=== PATIENT | female | born 1955 | race Caucasian/White ===

== ENCOUNTER 2024-11-04 14:09 | Emergency (ER) | payer MEDICARE, BC ==
[2024-11-04] MEDS: Ondansetron 4 MG/2 ML SDV IVPUSH ONE (14:12)
[2024-11-04] MEDS: fentaNYL 100 MCG/2 ML SDV IVPUSH ONE ×3 (14:30→15:37)
[2024-11-04] MEDS: Lidocaine 1% with EPINEPHrine 1:100,000 50 ML MDV INFILT ONE (15:15)
[2024-11-04] MEDS: Ketorolac 15 MG/ML SDV IVPUSH ONE (16:45)
[2024-11-04] MEDS: Morphine 10 MG/ML SDV IVPUSH ONE (17:03)
[2024-11-04] MEDS: Ketorolac 15 MG/ML SDV ONE (17:09)
[2024-11-04] MEDS: diazePAM 5 MG/ML MDV IVPUSH ONE (17:10)
[2024-11-04] MEDS ORDERED: Ondansetron 4 MG Tab.DIS ONE (20:00)
[2024-11-04] MEDS ORDERED: Acetaminophen/HYDROcodone 325-5 MG Tab ONE (20:00)
== END 2024-11-04 20:40 | disposition home or self-care (01) ==
LOC: LB.ED 14:09
DX: S53.125A Posterior dislocation of left ulnohumeral joint, initial encounter (principal); S52.022A Displaced fracture of olecranon process without intraarticular extension of left ulna, initial encounter for closed fracture; S52.122A Displaced fracture of head of left radius, initial encounter for closed fracture; S01.112A Laceration without foreign body of left eyelid and periocular area, initial encounter; Z79.890 Hormone replacement therapy; Z79.899 Other long term (current) drug therapy; W01.0XXA Fall on same level from slipping, tripping and stumbling without subsequent striking against object, initial encounter
CPT/HCPCS: 12006; 12013; 24600; 29105; 70450; 70486; 73020-LT; 73070-LT; 73100-LT; 73200-LT; 96374; 96375; 96376; 99152; 99153; 99284; 99284-25; A0425; A0429; A9270-GY; J1171; J1885; J2270; J2272; J2405; J3010; J3360; Q0162